=== PATIENT | male | born 1975 | race Caucasian/White ===

== ENCOUNTER 2020-12-18 08:06 | Emergency (ER) | payer BC ==
[~2020-12-18] VITALS: Ht 185.4 cm; Wt 81.7 kg
[2020-12-18 08:33] LABS: ABSOLUTE NEUTROPHILS 3.5 thou/uL (1.4-8.2); BASOPHILS 0.3 % (0.0-2.0); EOSINOPHILS 0.7 % (0.0-3.0); HEMOGLOBIN 14.3 gm/dL (14.0-18.0); LYMPHOCYTES 24.3 % (24.0-44.0); MCH 30.1 pg (26.0-34.0); MCHC 34.8 g/dL (28.0-37.0); MCV 86.5 fL (80.0-100.0); MONOCYTES 13.5 % (1.0-8.0); PLATELET COUNT 216 thou/uL (150-400); POLYS 61.2 % (36.0-66.0); RBC 4.74 mil/uL (4.50-6.00); RDW 12.5 % (10.5-14.5); WBC 5.8 thou/uL (4.0-11.0)
[2020-12-18 08:43] LABS: CALCIUM 8.5 mg/dL (8.5-10.1); POTASSIUM 4.3 mmol/L (3.5-5.1)
[2020-12-18 08:49] LABS: ALBUMIN 3.9 g/dL (3.4-5.0)
--- NOTE | 2020-12-18 11:08 | 2DMMODE ---
[facility] [place] [address] 2 D/M-MODE ECHOCARDIOGRAM Name: THIERRY TAMAYO Room #: REG Giovana#: [id number] Admission: 12/18/20 Attend Phys: Discharge: Date of : 75 Report #: [id number] THIS REPORT FOR: cc: [facility] - Clinic physician unknown [facility] - Clinic physician unknown Jim Cruz MD [facility] ~ APPROVED REPORT Study performed: 12/18/2020 09:22:33 EXAM: Comprehensive 2D, Doppler, and color-flow Echocardiogram Patient Location: ER Room #: 9 Status: stat BSA: 1.85 HR: 53 bpm BP: 114/73 mmHg Rhythm: NSR Other Information Study Quality: Good Indications Syncope 2D Dimensions RVDd: 50.81 mm IVSd: 10.46 (7-11mm) LVOT Diam: 21.45 (18-24mm) LVDd: 48.55 mm PWd: 13.20 (7-11mm) Ascending Ao: 4.70 (22-36mm) LVDs: 31.64 (25-40mm) Aortic Arch: 3.7 (22-36mm) Left Atrium: 30.04 (27-40mm) Aortic Root: 32.80 mm LV Single Plane 4CH: 73.88 % Volumes Left Atrial Volume (Systole) Single Plane 4CH: 27.45 mL Aortic Valve AoV Peak Eliazar.: 1.62 m/s AO Peak Gr.: 12.44 mmHg LVOT Max P.09 mmHg LVOT Max V: 1.51 m/s VINITA Vmax: 3.36 cm2 [facility] [address] [place] [address] 2 D/M-MODE ECHOCARDIOGRAM Name: THIERRY TAMAYO Room #: MICHAEL Akhtar#: [id number] Admission: 12/18/20 Attend Phys: Discharge: Date of : 75 Report #: [id number] Mitral Valve E/A Ratio: 1.1 MV Decel. Time: 3289.94 ms MV E Max Eliazar.: 0.39 m/s MV A Eliazar.: 0.36 m/s MV PHT: 954.08 ms IVRT: 96.89 ms Pulmonary Valve PV Peak Eliazar.: 1.17 m/s PV Peak Gr.: 5.52 mmHg Pulmonary Vein P Vein S: 0.54 m/s P Vein A: 0.22 m/s P Vein D: 0.44 m/s P Vein A Dur.: 120.0 msec P Vein S/D Ratio: 1.23 Tricuspid Valve TR Peak Eliazar.: 2.20 m/s RAP Estimate: 7.00 mmHg TR Peak Gr.: 19.34 mmHg RVSP: 26.00 mmHg Left Ventricle The left ventricle is normal size. There is normal LV segmental wall motion. There is normal left ventricular wall thickness. Left ventricular systolic function is normal. The left ventricular ejection fraction is within the normal range. LVEF is 65-70%. The left ventricular diastolic function is normal. Right Ventricle The right ventricle is normal size. The right ventricular systolic function is normal. Atria The left atrium size is normal. Right atrium is mildly dilated. Aortic Valve Aortic valve is trileaflet. No aortic regurgitation is present. There is no aortic valvular stenosis. Mitral Valve The mitral valve is normal in structure. There is no mitral valve regurgitation noted. No evidence of mitral valve stenosis. Tricuspid Valve The tricuspid valve is normal in structure. Mild tricuspid [facility] [address] [place] [address] 2 D/M-MODE ECHOCARDIOGRAM Name: BELKISTHIERRY Room #: REG GABI Akthar#: [id number] Admission: 12/18/20 Attend Phys: Discharge: Date of : 75 Report #: [id number] regurgitation. PAP 26 mmHg Pulmonic Valve The pulmonary valve is normal in structure. There is no pulmonic valvular regurgitation. Great Vessels The aortic root is normal in size. Ascending aorta is dilated (4.7 cm) Aortic arch 3.7 cm IVC is normal in size and collapses >50% with inspiration. Pericardium There is no pericardial effusion. There is no pleural effusion. <Conclusion> Left ventricular systolic function is normal. There is normal LV segmental wall motion. LVEF is 65-70%. Normal diastolic function Aortic valve is trileaflet. No aortic regurgitation or stenosis The mitral valve is normal in structure. No mitral valve regurgitation. Pulmonary artery pressure of 26 mmHg Ascending aorta is dilated (4.7 cm) There is no pericardial effusion. <ELECTRONICALLY SIGNED> By: Jim Cruz MD, [facility] 12/18/20 1107 110 110 Jim Cruz MD, FAC /INF
[2020-12-18] MEDS ORDERED: NORCO5 PO (12:15)
[2020-12-18 12:42] VITALS: BP 110/70
--- NOTE | 2020-12-18 15:53 | EKG ---
[place] [address] [facility] [place] [address] ELECTROCARDIOGRAM REPORT Name: BELKISTHIERRY OTT Room #: DEP GABI Akhtar#: [id number] Admission: 12/18/20 Attend Phys: Discharge: 12/18/20 Date of : 75 Report #: [id number] [facility] ED Test Date: 2020-12-18 Test Time: 08:14:41 Pat Name: THIERRY TAMAYO Department: Room: Gender: [employer]: REHAN : 1975 Requested By: Alma Olguin Order Number: [id number] MD: Alonso Phoenix Measurements Intervals [place] Rate: 59 P: 64 [place]: 186 QRS: -7 QRSD: 92 T: 10 QT: 424 QTc: 420 Interpretive Statements Sinus rhythm Probable left atrial enlargement No previous ECG available for comparison Electronically Signed On 12-18-2020 15:53:01 CDT by Alonso Phoenix [email or web address] <ELECTRONICALLY SIGNED> By: Alonso Phoenix MD, [facility] 12/18/20 1553 0814 3 Alonso Phoenix MD, FACC /EPI
== END 2020-12-18 12:35 | disposition home or self-care (01) ==
LOC: ER 08:06
PROVIDERS: Student in an Organized Health Care Education/Training Program
DX: R55 Syncope and collapse (principal); M79.662 Pain in left lower leg; R00.2 Palpitations; E11.9 Type 2 diabetes mellitus without complications; W18.30XA Fall on same level, unspecified, initial encounter; Y93.89 Activity, other specified; Y92.89 Other specified places as the place of occurrence of the external cause; Y99.8 Other external cause status

== ENCOUNTER → 2020-12-31 | Outpatient (CLI) | payer BC ==
[~2020-12-31] MED LIST: NORCO5 PO
== END ==
LOC: SJCVCIMAG 07:23
PROVIDERS: ATTEND Internal Medicine Cardiovascular Disease
DX: I51.7 Cardiomegaly (principal); R00.1 Bradycardia, unspecified; I77.819 Aortic ectasia, unspecified site; R55 Syncope and collapse; E11.9 Type 2 diabetes mellitus without complications

== ENCOUNTER → 2021-01-02 | Outpatient (CLI) | payer BC | LOC: CAT 13:56 | PROVIDERS: ATTEND Nuclear Medicine Nuclear Cardiology | DX: I71.2 Thoracic aortic aneurysm, without rupture (principal); N28.1 Cyst of kidney, acquired; I25.10 Atherosclerotic heart disease of native coronary artery without angina pectoris; I77.89 Other specified disorders of arteries and arterioles ==